=== PATIENT | male | born 1945 | race Caucasian/White ===

== ENCOUNTER 2023-04-20 09:10 | Day surgery (SDC) | payer MEDICARE ==
[2023-04-20] VITALS (13 sets, daily range): BP systolic 114–141; BP diastolic 75–103
[~2023-04-20] VITALS: Ht 190.5 cm; Wt 103.0 kg
[~2023-04-20 09:10] MED LIST: ALBU90OI6 INH; ATEN25 PO; Adult Low Dose81 MG PO; CIPR500 PO; CIPRO500 MG PO; CLON1 PO; CLOP75 PO; DIGO.25 PO; Diazepam5 MG PO; FAMO40 PO; Flonase 0.05% N16 GM; LOSA25 PO; Norco 5-325 Ta1 EACH PO; QVAR7.3 G1 IH; SIMV40 PO; Zofran4 MG PO
--- NOTE | 2023-04-20 11:03 | NUR ---
04/20/23 1103 Cristel Goodman HISTORY, CHART, MEDICATIONS AND ALLERGIES REVIEWED BEFORE START OF PROCEDURE. PATIENT CONFIRMS NPO STATUS AND AGREES WITH SCHEDULED PROCEDURE. 3-LEAD EKG REVIEWED WITH PHYSICIAN PRIOR TO START OF PROCEDURE. MONITOR INTACT WITH CONTINUOUS PULSE OXIMETRY,CAPNOGRAPHY, 3-LEAD EKG, INTERMITTENT BP. SUPPLEMENTAL O2 TO BE TITRATED THROUGHOUT PROCEDURE TO MAINTAIN O2 SATURATION ABOVE 90%. PATIENT DETERMINED TO BE ASA APPROPRIATE FOR PROPOFOL SEDATION PRIOR TO START OF PROCEDURE BY DR. VALDES. MALLAMPATI CLASS 3 AIRWAY: VISUALIZATION OF ONLY THE BASE OF THE UVULA. 12-LEAD EKG REVIEWED BY DR VALDES.
--- NOTE | 2023-04-20 12:03 | NUR ---
PT AWAKE AND ALERT, VITALS STABLE. LUNGS CTA. PT STABLE WHEN PUTING CLOTHING ON. INSTRUCTIONS REVIEWED WITH PATIENT AND SPOUSE. PT AND SPOUSE VERBALIZED UNDERSTANDING. PT DISCHARGED TO HOME VIA WHEELCHAIR.
== END 2023-04-20 22:55 | disposition home or self-care (01) ==
LOC: ORSCMMR 09:10 → ORD 10:00 → ORSCMMR 22:55
PROVIDERS: Internal Medicine Gastroenterology
PROC: 0DB78ZX Excision of Stomach, Pylorus, Via Natural or Artificial Opening Endoscopic, Diagnostic (ICD-10-PCS; principal; 2023-04-20 10:00)
PROC: 0DB48ZX Excision of Esophagogastric Junction, Via Natural or Artificial Opening Endoscopic, Diagnostic (ICD-10-PCS; principal; 2023-04-20 10:00)
PROC: 0DB98ZX Excision of Duodenum, Via Natural or Artificial Opening Endoscopic, Diagnostic (ICD-10-PCS; principal; 2023-04-20 10:00)
DX: R10.13 Epigastric pain (principal); K29.80 Duodenitis without bleeding; K29.70 Gastritis, unspecified, without bleeding; K21.9 Gastro-esophageal reflux disease without esophagitis
CPT/HCPCS: 88305; 88342; 93005; 93010; A9270; J2704; J7120

== ENCOUNTER 2024-11-03 09:46 | Day surgery (SDC) | payer OTHER ==
[~2024-11-03] VITALS: Ht 190.5 cm; Wt 96.5 kg
[~2024-11-03 09:46] MED LIST changes: +ASPI81CH PO; +ATOR40TA PO; +ATOR80 PO; +Aspir 8181 MG PO; +Balanced Salt Epinephrine Irrigation Solution 500 mL IR SCH; +CARTIA XT240 M1 PO; +Lidocaine HCl/Pf 1% 5 ML VIAL XX SCH; +METO25ER PO; +METO50ER PO; +Moxifloxacin HCL 0.5 MG/0.1 ML 0.4MLSYR LEFTEYE SCH; +PHENYLEPHRINE\\TROPICAMIDE\\TETRACAINE OPHTHALMIC DILATING SOLN LEFTEYE PRN; +Povidone-Iodine 450 DROP/30 ML Solution LEFTEYE SCH; +Triamcinolone Inj Susp 40 MG / ML 1ML Vial INJ SCH; +Triamcinolone Inj Susp 40 MG / ML 1ML Vial ONE
[2024-11-03] MEDS ORDERED: Diazepam 2 MG Tab ONE (10:39)
[2024-11-03] MEDS ORDERED: Diazepam 5 MG Tab ONE (10:39)
[2024-11-03] MEDS ORDERED: ELIQUIS5 M2 PO (10:59)
[2024-11-03] MEDS ORDERED: Tetracaine HCl 0.5% Opth Soln 15 ml XX ONE (11:48)
[2024-11-03] MEDS ORDERED: Metoprolol Tartrate 5 ML IV ONE (12:16)
--- NOTE | 2024-11-03 12:35 | NUR ---
11/03/24 1235 Minor Villegas METOPROLOL 1MG IV GIVEN AT 1233 FOR ELEVATED HEART RATE OF 144. SEE VS FOR FURTHER INFORMATION
[2024-11-03 12:44] VITALS: BP 108/78
[2024-11-03] MEDS ORDERED: Tetracaine HCl/Pf 0.5% Opth Soln 4 ml XX ONE (18:49)
[2024-11-03] MEDS ORDERED: Povidone-Iodine 450 DROP/30 ML Solution XX ONE (18:49)
== END 2024-11-03 13:09 | disposition home or self-care (01) ==
LOC: ORSCSDS 09:46
PROVIDERS: Ophthalmology
PROC: 08RK3JZ Replacement of Left Lens with Synthetic Substitute, Percutaneous Approach (ICD-10-PCS; principal; 2024-11-03 11:30)
DX: H25.813 Combined forms of age-related cataract, bilateral (principal); E78.5 Hyperlipidemia, unspecified; I25.10 Atherosclerotic heart disease of native coronary artery without angina pectoris; Z79.899 Other long term (current) drug therapy; Z79.01 Long term (current) use of anticoagulants; Z79.82 Long term (current) use of aspirin
CPT/HCPCS: A9270; J3301; V2632